=== PATIENT | male | born 1995 | race Caucasian/White ===

== ENCOUNTER 2023-02-13 13:54 | Emergency (ER) | payer BC, SELFPAY ==
[2023-02-13 13:55] VITALS: BP 149/85; PULSE 64; RESP 16; TEMP 36.7; O2SAT 100; BMI 30.9
--- NOTE | 2023-02-13 14:27 | CT_ITS ---
STUDY: CT SOFT TISSUE NECK WITH CONTRAST REASON FOR EXAM: Male, 27 years old. Patient woke up with numbness to the right jaw. RADIATION DOSAGE (If Supplied By Facility): CTDIvol = ( 21.49 ) mGy, DLP = ( 1078.17 ) mGycm TECHNIQUE: The patient was scanned in a multi-detector CT scanner. High resolution transaxial imaging was performed following intravenous administration of IV 100mL Isovue-300. Sagittal and coronal images were reconstructed. Individualized dose optimization techniques were used for this CT. COMPARISON: None. FINDINGS: Normal bilateral parotid glands. Normal bilateral senior ios developer spaces. Normal bilateral parapharyngeal spaces. Normal bilateral carotid spaces. Normal bilateral sublingual and submandibular glands and spaces. Normal visualized nasopharynx. Normal retropharyngeal space. Normal perivertebral space. Normal visualized bilateral faucial tonsils. The visualized tongue, tongue base and oropharynx are normal. The visualized cervical lymph nodes (levels I-) are within normal size limits, and maintain normal morphology. There is no demonstrated solid or cystic mass lesion. There is no abnormal contrast enhancement. Normal epiglottis, bilateral vallecula and hypopharynx. The pre-epiglottic and paraglottic adipose spaces are normal. Normal visualized bilateral piriform sinuses, aryepiglottic folds, vocal cords, and arytenoid-cricoid articulations. Normal subglottic trachea. Normal bilateral lobes of the thyroid gland. Normal visualized pulmonary apices. Normal visualized paranasal sinuses. Normal visualized cervical spine. CT/Soft Tissue Neck WITH Contrast IMPRESSION: Normal enhanced CT examination of the soft tissues of the neck. Electronically Signed: Arnol Fermin MD at 15:25 EDT ,
--- NOTE | 2023-02-13 14:28 | EX.ED.DYSGE1 ---
HPI History of Present Illness Chief Complaint: Numb/Ting Informant: patient Narrative Narrative: Patient presents with some of the numbness to his right lateral jaw and some sense of swelling and fullness. He states its not painful. No headache. No numbness tingling weakness anywhere else. Never had this before. No recent trauma. He states his teeth do not hurt at all. This just was noted over the last day. PFSH PFSH Allergy/AdvReac Type Severity Reaction Status Date / Time Sulfa (Sulfonamide Allergy Anaphylaxis Verified 02/13/23 13:57 Antibiotics) ROS ROS ED Constitutional Constitutional ED: Denies chills or fever(s) Eyes Eyes: Denies blurry vision, change in vision or diplopia ENT ENT ED: Reports other Details: See history of present illness Cardiovascular Cardiovascular: Denies chest pain or palpitations Respiratory/Chest Respiratory/Chest: Denies cough or dyspnea Gastrointestinal Gastrointestinal: Denies nausea or vomiting Musculoskeletal Musculoskeletal: Denies arthralgias, back pain or neck pain Integumentary Denies rash Neurologic Neurologic: Reports paresthesias; Denies headache(s) or weakness Hematologic/Lymphatic Hematologic/Lymphatic: Denies easy bleeding or easy bruising Allergic/Immunologic Allergic/Immunologic ED: Denies urticaria EXAM Physical Exam Narrative Exam Narrative: Patient is awake alert no acute distress. HEENT: Exam is somewhat limited as the patient has a very full martin and mustache. I do sense that there could be some slight swelling around his right mandible laterally but not for certain. I do not feel any definitive lymphadenopathy. Intraorally his teeth are not at all tender. There is no redness. No swelling. No sign of Ludewig's. No sign of TMJ on exam. I do not see the source of his symptoms. Neck shows no lymphadenopathy and no pain with motion Heart is regular. Not tachycardic. Lungs are clear bilaterally and saturations are normal at 100% on room air showing no hypoxia. Abdomen soft nontender Extremities show no tenderness. Neurologically there is no numbness tingling or weakness of extremities. Range of motion the eyes and visual cortes are normal. Pupillary response is normal. He does have sensation decreased on left side of his mandible. From just past the ankle to prior to distal portion of the anterior chin. But no skin changes are noted. I do not see any vesicles. Const Vital Signs: 02/13/23 13:55 Temperature 98.1 F Temperature Source Temporal Pulse Rate 64 Respiratory Rate 16 Blood Pressure 149/85 H Blood Pressure Mean 106 Pulse Ox 100 Oxygen Delivery Method Room Air MDM MDM MDM Narrative Medical decision making narrative: My independent interpretation the patient's CT soft tissue of the neck with contrast showed no acute process. But we did want to wait for final reading of radiology on this. Happily the radiology reading was normal and hand CT examination of the soft tissues of the neck. I explained this to the patient. We did not see no sign of mass or other issue. I think we need to give this some time. If he develops further symptoms we can reevaluate him. He may follow-up with his private physician and/or ENT in the future. Radiography Diagnostic Testing: Clinical Impression(s) from Imaging Studies Soft Tissue Neck CT 02/13/23 14:27 IMPRESSION: Normal enhanced CT examination of the soft tissues of the neck. Electronically Signed: Arnol Fermin MD at 15:25 EDT , Discharge Plan Triage Chief Complaint: Numb/Ting ED Provider: Jerald Urbano Dx/Rx/DC Orders Clinical Impression: Numbness of right jaw Instructions: ED Neuropathy, Peripheral Primary Care Provider: Care Physician,No Primary Referrals: Kenyon Simmons MD [Med Staff - System Development Manager] - 3-5 Days Care Physician,No Primary [Primary Care Provider] - Disposition Disposition: Home, Self Care
[2023-02-13 16:00] VITALS: RESP 18
== END 2023-02-13 16:04 | disposition home or self-care (01) ==
PROVIDERS: Emergency Provider Emergency Medicine; Visit Provider Emergency Medicine
DX: R20.0 Anesthesia of skin (principal); R20.2 Paresthesia of skin
CPT/HCPCS: 70491; 99283; Q9967; A4216

== ENCOUNTER 2023-02-16 00:45 | Emergency (ER) | payer BC, SELFPAY ==
[2023-02-16 00:46] VITALS: BP 159/91; PULSE 80; RESP 15; TEMP 36.8; O2SAT 99; BMI 30.9
--- NOTE | 2023-02-16 00:53 | EX.ED.GENINJ ---
HPI History of Present Illness Chief Complaint: Other, Pain/Inj PFSH PFSH Medical History no medical history Allergy/AdvReac Type Severity Reaction Status Date / Time Sulfa (Sulfonamide Allergy Anaphylaxis Verified 02/16/23 00:50 Antibiotics) Surgical History (Updated 02/16/23 @ 00:51 by Olya Marcos) [place] teeth extracted Social History Smoking Status: Never smoker EXAM Physical Exam Const Vital Signs: 02/16/23 00:46 02/16/23 00:52 Temperature 98.2 F Temperature Source Temporal Pulse Rate 80 Respiratory Rate 15 Respiratory Effort Normal Non-Labored Respiratory Pattern Normal Blood Pressure 159/91 H Blood Pressure Mean 113 Pulse Ox 99 Oxygen Delivery Method Room Air MDM MDM MDM Narrative Medical decision making narrative: HISTORY OF PRESENT ILLNESS: 27-year-old male here with concern for jaw infection. The patient states he has had several days of right lower jaw pain has been worsening despite seeing the emergency physician with negative imaging, urgent care and dentistry. He states this initially started several days ago but over the last 24 hours has had swelling and pain on the right lower jaw that is constant severe and worse with any sort of jaw movement or eating. REVIEW OF SYMPTOMS: Pertinent positives: Jaw pain Pertinent negatives: Neck stiffness, drooling, difficulty swallowing, stridor, fever PHYSICAL EXAM: Nursing triage notes reviewed, Vital signs reviewed Constitutional: please see mdm HENT: MMM, no submandibular edema, bilateral TMs pearly mcfarlane, good dentition, right lower molar area of fluctuance induration consistent with dental abscess. Uvula midline, tonsils without erythema or exudates. Eyes: Pupils equal round and reactive to light, Extraocular muscles intact Neck: No stridor, no JVD, full neck ROM Skin: No rash or lesions noted MEDICAL DECISION MAKING: Chief Complaint: Dental pain, jaw pain External records reviewed: Seen in the ED on 02/13/2023. CT scan of the neck at that time showed normal soft tissues MDM Narrative: I considered the following differential diagnosis: Dental abscess, dental caries, dental infection, Ludewig's angina, Lemierre's syndrome, RPA, CHEMICAL MANAGER Physical exam consistent with dental abscess. No clinical evidence to suggest Ludewig's angina, Lemierre's syndrome, peritonsillar abscess, retropharyngeal abscess incision and drainage was performed. Please see procedure note. Procedure was successful with no intraprocedural event. Patient was on Augmentin I encouraged him to continue until course is complete. I encouraged him to follow-up with dentistry at the next available appointment. Procedure: Incision and Drainage right lower molar dental abscess The procedure was performed by myself. Location: Right lower molar dental abscess Risks and benefits: Risks, benefits, and alternatives were discussed. Questions were sought and answered, and verbal consent provided for the procedure. Anesthesia: 2% lidocaine without epinephrine Procedure Description: 18-gauge needle inserted with return of purulent fluid (approximately 3 cc), improvement in symptoms noted. The patient tolerated the procedure well without complications. Factors affecting care: None Social determinants of health: None History obtained from others: The patient's Shared decision making: I will have a discussion with the patient and or visitors regarding risk/benefits of further testing or admission. They will be made aware of of the risk/benefits inherent in this decision they will be given the opportunity to voice understanding. Consults: None Discharge Plan Triage Chief Complaint: Other, Pain/Inj ED Provider: Montez Izquierdo Dx/Rx/DC Orders Clinical Impression: Abscess, dental Primary Care Provider: Care Physician,No Primary Referrals: Rosario Cote MD [Med Staff - Color Paste Mixer] - Activity Restrictions/Additional Instructions: Thank you for trusting us with your care today! Please take Tylenol (2 pills, 650 mg), ibuprofen (2 pills, 400 mg) every 6 hours as needed for pain and fever control. Please take Augmentin until course complete. Please return to the emergency department if your symptoms change or worsen. Specifically if develop swelling in EXTR or jaw, you develop drooling, you cannot swallow, develop shortness of breath or feeling like your throat is closing. Please follow with your dentist for further outpatient evaluation and management. Disposition Disposition: Home, Self Care
[2023-02-16] MEDS: oxyCODONE 5 MG Tablet PO (01:33)
[2023-02-16] MEDS: Lidocaine 2% (10 ml mdv) 10 ML Vial 5 ML INFILT (02:40)
[2023-02-16 02:47] VITALS: RESP 18; TEMP 35.5
== END 2023-02-16 02:48 | disposition home or self-care (01) ==
PROVIDERS: Emergency Provider Emergency Medicine; Visit Provider Emergency Medicine
DX: K04.7 Periapical abscess without sinus (principal)
CPT/HCPCS: 41800; 99283; A4216